=== PATIENT | female | born 1955 | race Caucasian/White ===

== ENCOUNTER 2024-12-20 09:58 | Outpatient (CLI) | payer MEDICARE ==
[2024-12-20] MEDS ORDERED: Iopamidol 300 61% 100 ML VIAL FS ONE (10:40)
[2024-12-20 12:50] LABS: Estimated GFR - POC 80.0
== END 2024-12-20 09:59 | disposition home or self-care (01) ==
LOC: CSHCT 09:58
PROVIDERS: ATTEND Ophthalmology
DX: D35.2 Benign neoplasm of pituitary gland (principal)
CPT/HCPCS: 36415; 70470; 82565; Q9967

== ENCOUNTER 2025-01-08 12:36 | Outpatient (CLI) | payer MEDICARE ==
[2025-01-08 13:17] LABS: Estimated GFR - POC 80.0
== END 2025-01-08 12:37 | disposition home or self-care (01) ==
LOC: CSHMRI 12:36
PROVIDERS: ATTEND Surgery
DX: D35.2 Benign neoplasm of pituitary gland (principal); R90.82 White matter disease, unspecified
CPT/HCPCS: 70543; 70553; 82565